=== PATIENT | male | born 1975 | race Hispanic/Latino ===

== ENCOUNTER 2018-01-19 13:19 | Emergency (ER) | payer OTHER ==
[2018-01-19 13:21] VITALS: BMI 53.1
[2018-01-19] MEDS ORDERED: Aspirin 325 mg EC Tablets PO STA (13:31)
[2018-01-19 13:52] LABS: BASO % 0.3 % (0.0-2.0); EOS % 0.3 % (0.0-4.0); HEMOGLOBIN 16.6 g/dL (12.0-18.0); LYMPH # 3.9 K/uL (1.0-4.3); LYMPH % 38.5 % (20.0-40.0); MEAN CORPUSCULAR HEMOGLOBIN 33.7 pg (27.0-31.0); MEAN CORPUSCULAR HGB CONC 35.1 g/dL (33.0-37.0); MONO # 0.7 K/uL (0.0-0.8); MONO % 6.9 % (0.0-10.0); NEUT # 5.4 K/uL (1.8-7.0); NRBC % 0.1 % (0.0-2.0); RBC 4.93 Mil/uL (4.40-5.90); RED CELL DISTRIBUTION WIDTH 12.9 % (11.5-14.5)
--- NOTE | 2018-01-19 13:58 | C.PDOC ---
History Of Present Illness 42 y/o male with a history of panic attacks brought in by EMS presents to the ED for chest pain at a 10/10. Patient states he was walking out his house when he suddenly felt chest pain associated with SOB and palpitations. He also complains of pain in his jaw and neck. Patient reports he cannot feel his feet well and describes it as a tingling/numbness sensation. He states he drinks a lot of water but his urine is still concentrated. According to EMS patient had a glucose level of 265, atrial fibrillation in the 180's, and 108/ 76 BP. EMS gave 500 cc of fluids with him being on his second bag upon arrival and 40 mg of Cardizem. Of note, patient stopped smoking 17 years ago. Anesthetics make him feel nauseas. PMD: patient states he does not have one Time Seen by Provider: 01/19/18 13:31 Chief Complaint (Nursing): Palpitations History Per: Patient History/Exam Limitations: no limitations Onset/Duration Of Symptoms: Mins Current Symptoms Are (Timing): Still Present Quality: "Pain" Recent travel outside of the [place]: No Past Medical History Vital Signs: Last Vital Signs Temp 99.3 F 01/19/18 15:15 Pulse 91 H 01/19/18 15:15 Resp 12 01/19/18 15:15 BP 121/93 H 01/19/18 15:15 Pulse Ox 99 01/19/18 15:15 - Medical History PMH: Anxiety Other PMH: panic attack's Surgical History: No Surg Hx Family History: States: No Known Family Hx - Social History Hx Tobacco Use: No (quit 17 years ago) Hx Alcohol Use: Yes Hx Substance Use: Yes (cannabis) - Immunization History Hx Tetanus Toxoid Vaccination: No Hx Influenza Vaccination: No Hx Pneumococcal Vaccination: No Review Of Systems Except As Marked, All Systems Reviewed And Found Negative. Cardiovascular: Positive for: Chest Pain, Palpitations Respiratory: Positive for: Shortness of Breath Musculoskeletal: Positive for: Neck Pain, Other (jaw pain) Neurological: Positive for: Numbness (and tingling in feet) Physical Exam - Physical Exam Appears: Non-toxic, No Acute Distress, Agitated Skin: Normal Color, Warm Head: Atraumatic Eye(s): bilateral: Normal Inspection, PERRL, EOMI Cardiovascular: No Rhythm Regular (tachycardic) Respiratory: Normal Breath Sounds Gastrointestinal/Abdominal: Normal Exam, Soft, No Tenderness, Other (obese) Extremity: Normal ROM, Pedal Edema (+1) Neurological/Psych: Oriented x3 Additional Physical Exam Comments: Glucose check was 340. ED Course And Treatment - Laboratory Results Result Diagrams: 18 13:44 01/19/18 13:44 ECG Rhythm: Sinus Tachycardia Interpretation Of ECG: no ST elevations, no depression Rate From EC O2 Sat by Pulse Oximetry: 100 (nasal cannula) Pulse Ox Interpretation: Normal Medical Decision Making Medical Decision Making: Time: 13:53 Impression: Anxiety, tachycardia, ME, and PE Initial Plan: * EKG * B-Type * CMP * Troponin I Stat * Chest X-Ray * Aspirin 325 mg PO x2 * Ativan 1 mg IVP * CBC * D Dimer * Patient feels well, will d/c with clinic follow up. Scribe Attestation: Documented by Su Peña acting as a scribe Lizeth Davis MD. Scribe Attestation: All medical record entries made by the Scribe were at my direction and personally dictated by me. I have reviewed the chart and agree that the record accurately reflects my personal performance of the history, physical exam, medical decision making, and the department course for this patient. I have also personally directed, reviewed, and agree with the discharge instructions and disposition. Disposition Counseled Patient/Family Regarding: Studies Performed - Disposition Referrals: [facility] [Outside] Disposition: HOME/ ROUTINE Disposition Time: 17:04 Condition: STABLE Instructions: Palpitations (DC), Hyperglycemia, Adult (DC) Forms: [employer] (Portuguese) - POA Present On Arrival: None - Clinical Impression Clinical Impression: Palpitations, Hyperglycemia
[2018-01-19 14:04] LABS: ALB/GLOB RATIO 1.3 (1.0-2.1); ALBUMIN 4.2 g/dL (3.5-5.0); ALT/SGPT 63 U/L (21-72); AST/SGOT 101 U/L (17-59); BLOOD UREA NITROGEN 6 mg/dL (9-20); GFR AFRICAN-AMERICAN > 60; GFR NON-AFRICAN AMERICAN > 60
--- NOTE | 2018-01-19 14:11 | RAD ---
Chest x-ray single frontal view History: Chest pain. Comparison: None available. Findings: Biapical pleural thickening with upper lobe granulomatous changes. Mild venous congestion. Right hilar prominence. Heart size within normal limits. Impression: Biapical pleural thickening with upper lobe granulomatous changes. Mild venous congestion. Right hilar prominence.
[2018-01-19 14:16] LABS: B-TYPE NATRIURETIC PEPTIDE 130 pg/mL (0-450)
[2018-01-19] MEDS ORDERED: Sodium Chloride 0.9% 1,000 ML IV ONE (14:54)
[2018-01-19 15:16] VITALS: TEMP 99.3
[2018-01-19 17:03] VITALS: BP 126/93; PULSE 83; RESP 9
[2018-01-19 17:04] VITALS: O2SAT 100
--- NOTE | 2018-01-22 13:42 | CARD ---
APPROVED REPORT EKG Measurement Heart [id number] <Conclusion> Sinus tachycardia T wave abnormality, consider inferior ischemia Abnormal ECG
== END 2018-01-19 17:35 | disposition home or self-care (01) ==
LOC: C.ER 13:19
DX: R00.2 Palpitations (principal); R73.9 Hyperglycemia, unspecified
CPT/HCPCS: 71045; 80053; 82948; 83036; 83880; 84484; 85025; 85378; 96374; 99285; J2060; J7030